=== PATIENT | female | born 1980 | race Caucasian/White ===

== ENCOUNTER → 2021-03-28 | Outpatient (CLI) | payer BC ==
[~2021-03-28] MED LIST: ADDERALL 15 MG15 MG PO; ALDACTONE100 MG PO; CO Q-10200 MG PO; GLUCOPHAGE XR500 MG PO; K-DUR TAB 20 M20 MEQ PO; LEXAPRO10 MG PO; MAGNESIUM500 MG PO; NORCO 7.5-3251 EACH PO; NORVASC 5 MG TAB5 MG PO; STRATTERA40 MG PO; VITAMIN D250000 UNIT PO; VITAMIN D5000 UNIT PO
== END ==
LOC: LAB 15:42
DX: Z51.81 Encounter for therapeutic drug level monitoring (principal); Z79.899 Other long term (current) drug therapy
CPT/HCPCS: 36415; 80076

== ENCOUNTER → 2021-06-09 | Outpatient (CLI) | payer BC ==
[2021-06-09 12:36] LABS: RED BLOOD COUNT 4.69 M/UL (4.00-5.10); WHITE BLOOD COUNT 9.4 K/UL (4.5-11.0)
[2021-06-09 13:15] LABS: BUN/CREATININE RATIO 9 (0-10)
[2021-06-14 08:14] LABS: (LD) FRACTION 1 17 % (17-32); (LD) FRACTION 2 33 % (25-40); (LD) FRACTION 3 21 % (17-27); (LD) FRACTION 4 13 % (5-13); (LD) FRACTION 5 16 % (4-20); CK-BB 0 % (0); CK-MB 0 % (0-3); CK-MM 100 % (97-100); LDH 158 IU/L (119-226); MACRO TYPE 1 0 % (Not Observed); MACRO TYPE 2 0 % (Not Observed)
== END ==
LOC: LAB 11:37
PROVIDERS: Nurse Practitioner Family
DX: Z13.220 Encounter for screening for lipoid disorders (principal); R07.9 Chest pain, unspecified; R53.83 Other fatigue; F90.2 Attention-deficit hyperactivity disorder, combined type; M54.9 Dorsalgia, unspecified; I10 Essential (primary) hypertension; K21.9 Gastro-esophageal reflux disease without esophagitis; Z00.00 Encounter for general adult medical examination without abnormal findings; E55.9 Vitamin D deficiency, unspecified
CPT/HCPCS: 71046; 80053; 80061; 80076; 82550; 82552; 82553; 82607; 83615; 83625; 84439; 84443; 84484; 85025; 85379; 86403

== ENCOUNTER → 2021-06-15 | Outpatient (CLI) | payer BC | LOC: HEART 5 07:52 | DX: R07.9 Chest pain, unspecified (principal); R53.83 Other fatigue | CPT/HCPCS: 78452; A9502; J2785 ==

== ENCOUNTER → 2021-07-27 | Outpatient (CLI) | payer BC | LOC: HEART 5 14:00 | DX: R07.9 Chest pain, unspecified (principal); I51.7 Cardiomegaly | CPT/HCPCS: 93306 ==

== ENCOUNTER → 2021-10-26 | Outpatient (CLI) | payer BC | LOC: RAD 11:19 | DX: M47.22 Other spondylosis with radiculopathy, cervical region (principal) | CPT/HCPCS: 72040 ==